=== PATIENT | male | born 1960 | race Caucasian/White ===

== ENCOUNTER 2017-01-06 09:19 | Day surgery (SDC) | payer BC, OTHER ==
[~2017-01-06] VITALS: Ht 12.7 cm; Wt 5.0 kg
[~2017-01-06 09:19] MED LIST: ALLE12TA31 PO; FLUTISP; HYDR25TAB PO
[2017-01-06] MEDS ORDERED: NS 1,000 ML IV ONE (10:00)
[2017-01-06] MEDS ORDERED: LIDOCAINE 2% INJ 100 MG/5 ML SDV (FOR ANES.) As Ordered ONE (11:20)
[2017-01-06] MEDS ORDERED: PROPOFOL 200 MG/20 ML VIAL As Ordered ONE (11:20)
--- NOTE | 2017-01-06 11:29 | ROOR ---
Patient Name: Nik Valencia Procedure Date: 01/06/2017 11:04 AM Date of : 1960 Age: 56 Room: [facility] Gender: Male Note Status: Finalized Procedure: Colonoscopy Indications: Screening for colorectal malignant neoplasm Providers: Morgan AGUILERA MD Referring MD: Basilio MORALES NP Requesting Provider: Medicines: Monitored Anesthesia Care Complications: No immediate complications. Procedure: Pre-Anesthesia Assessment: - The heart rate, respiratory rate, oxygen saturations, blood pressure, adequacy of pulmonary ventilation, and response to care were monitored throughout the procedure. The Colonoscope was introduced through the anus and advanced to the cecum, identified by appendiceal orifice and ileocecal valve. The colonoscopy was performed without difficulty. The patient tolerated the procedure well. The quality of the bowel preparation was good. Findings: The perianal and digital rectal examinations were normal. A 9 mm polyp was found in the splenic flexure. The polyp was pedunculated. The polyp was removed with a hot snare. Resection and retrieval were complete. Small Internal Hemorrhoids. The exam was otherwise without abnormality on direct and retroflexion views. Impression: - One 9 mm polyp at the splenic flexure, removed with a hot snare. Resected and retrieved. - Small Internal Hemorrhoids. - The examination was otherwise normal on direct and retroflexion views. Recommendation: - Repeat colonoscopy in 3 years for surveillance. Morgan Aguilera MD Morgan AGUILERA MD 01/06/2017 11:29:05 AM This report has been signed electronically. Number of Addenda: 0 Note Initiated On: 01/06/2017 11:04 AM Estimated Blood Loss: Estimated blood loss: none.
[2017-01-06 11:45] VITALS: BP 123/80
== END 2017-01-06 11:57 | disposition home or self-care (01) ==
LOC: M OPP 09:19
PROVIDERS: ATTEND Internal Medicine Gastroenterology
DX: Z12.11 Encounter for screening for malignant neoplasm of colon (principal); D12.3 Benign neoplasm of transverse colon; K64.8 Other hemorrhoids; I10 Essential (primary) hypertension; R06.83 Snoring; Z87.891 Personal history of nicotine dependence; Z79.899 Other long term (current) drug therapy; Z80.7 Family history of other malignant neoplasms of lymphoid, hematopoietic and related tissues

== ENCOUNTER → 2017-01-23 | Outpatient (REF) | payer OTHER ==
[2017-01-25 14:15] LABS: PSA % FREE 7.9 % (.); PSA FREE 0.72 ng/mL; PSA TOTAL 9.1 ng/mL (0.0-4.0)
== END ==
LOC: M LABSMT 16:31
PROVIDERS: ATTEND Nurse Practitioner Women's Health
DX: R97.20 Elevated prostate specific antigen [PSA] (principal)

== ENCOUNTER → 2017-02-24 | Outpatient (CLI) | payer BC, OTHER | LOC: M SMT PRO 08:17 | DX: R97.20 Elevated prostate specific antigen [PSA] (principal) | CPT/HCPCS: G0416 ==

== ENCOUNTER → 2017-05-22 | Outpatient (REF) | payer OTHER ==
[2017-05-25 00:08] LABS: PSA FREE 0.69 ng/mL; PSA TOTAL 9.9 ng/mL (0.0-4.0)
== END ==
LOC: M SMT 18:49
DX: N41.1 Chronic prostatitis (principal)
CPT/HCPCS: 84154

== ENCOUNTER → 2017-11-27 | Outpatient (CLI) | payer OTHER ==
[2017-11-30 17:40] LABS: PSA % FREE 8.9 % (.); PSA FREE 0.71 ng/mL
== END ==
LOC: M ADAMS 15:15
DX: R97.20 Elevated prostate specific antigen [PSA] (principal)
CPT/HCPCS: 84154

== ENCOUNTER → 2018-05-29 | Outpatient (REF) | payer OTHER | LOC: M LABSMT 15:41 | PROVIDERS: ATTEND Nurse Practitioner Women's Health | DX: R97.20 Elevated prostate specific antigen [PSA] (principal) ==

== ENCOUNTER → 2018-11-20 | Outpatient (REF) | payer OTHER ==
[2018-11-20 15:18] LABS: INR 0.92
[2018-11-20 15:19] LABS: PARTIAL THROMBOPLASTIN TIME 26.9 SECONDS (25.0-38.4)
== END ==
LOC: M LAB REF 12:07
PROVIDERS: ATTEND Internal Medicine
DX: Z01.812 Encounter for preprocedural laboratory examination (principal); C61 Malignant neoplasm of prostate

== ENCOUNTER → 2020-04-05 | Outpatient (CLI) | payer OTHER ==
[~2020-04-05] MED LIST changes: +CIAL5TAB PO; +CLAR10CA3 PO; +D31000TA2 PO; +HYDR-3490 PO; -HYDR25TAB PO; +LISI20TA33 PO; +OMEP1CAP73 PO; +VITA100T86 PO
== END ==
LOC: M LABSMTC 08:11
PROVIDERS: ATTEND Anesthesiology
DX: Z01.812 Encounter for preprocedural laboratory examination (principal); Z20.822 Contact with and (suspected) exposure to COVID-19

== ENCOUNTER 2020-04-10 07:42 | Day surgery (SDC) | payer BC, OTHER ==
[~2020-04-10] VITALS: Ht 180.3 cm; Wt 92.0 kg
[~2020-04-10 07:42] MED LIST changes: +NS 1,000 ML IV ONE
[2020-04-10] MEDS ORDERED: LIDOCAINE 2% 100MG/5ML SDV (FOR ANES.) As Ordered ONE (08:23)
[2020-04-10] MEDS ORDERED: propofoL 200 MG/20 ML VIAL As Ordered ONE (08:23)
--- NOTE | 2020-04-10 08:59 | ROOR ---
Patient Name: Nik Valencia Procedure Date: 04/10/2020 8:34 AM Date of : 1960 Age: 59 Room: [facility] Gender: Male Note Status: Finalized Procedure: Colonoscopy Indications: High risk colon cancer surveillance: Personal history of colonic polyps, Last colonoscopy: January 2017 Providers: Morgan AGUILERA MD Referring MD: Maria De Jesus Edmond NP Requesting Provider: Medicines: Monitored Anesthesia Care Complications: No immediate complications. Procedure: Pre-Anesthesia Assessment: - The heart rate, respiratory rate, oxygen saturations, blood pressure, adequacy of pulmonary ventilation, and response to care were monitored throughout the procedure. The Colonoscope was introduced through the anus and advanced to the terminal ileum, with identification of the appendiceal orifice and IC valve. The colonoscopy was performed without difficulty. The patient tolerated the procedure well. The quality of the bowel preparation was good. Findings: The perianal and digital rectal examinations were normal. Two pedunculated and sessile polyps were found in the splenic flexure. The polyps were 5 to 7 mm in size. These polyps were removed with a cold snare. Resection and retrieval were complete. To prevent bleeding after the polypectomy, two hemostatic clips were successfully placed. There was no bleeding at the end of the procedure. Internal hemorrhoids were found during retroflexion. The hemorrhoids were medium-sized. The exam was otherwise without abnormality on direct and retroflexion views. Impression: - Two 5 to 7 mm polyps at the splenic flexure, removed with a cold snare. Resected and retrieved. Clips were placed. - Internal hemorrhoids. - The examination was otherwise normal on direct and retroflexion views. Recommendation: - Repeat colonoscopy in 5 years for surveillance. Procedure Code(s): --- Professional --- 65379, Colonoscopy, flexible; with removal of tumor(s), polyp(s), or other lesion(s) by snare technique Diagnosis Code(s): --- Professional --- K64.8, Other hemorrhoids K63.5, Polyp of colon Z86.010, Personal history of colonic polyps CPT copyright 2019 [employer]. All rights reserved. The codes documented in this report are preliminary and upon telecommunications project manager review may be revised to meet current compliance requirements. Morgan Aguilera MD Morgan AGUILERA MD 04/10/2020 9:00:12 AM Electronically signed by Morgan AGUILERA MD Number of Addenda: 0 Note Initiated On: 04/10/2020 8:34 AM Estimated Blood Loss: Estimated blood loss: none.
[2020-04-10 09:25] VITALS: BP 125/91
== END 2020-04-10 10:02 | disposition home or self-care (01) ==
LOC: M OPP 07:42
PROVIDERS: ATTEND Internal Medicine Gastroenterology
DX: Z12.11 Encounter for screening for malignant neoplasm of colon (principal); Z86.010 Personal history of colon polyps; D12.3 Benign neoplasm of transverse colon; K64.8 Other hemorrhoids; I10 Essential (primary) hypertension; Z79.899 Other long term (current) drug therapy; Z87.891 Personal history of nicotine dependence

== ENCOUNTER 2021-01-06 08:29 | Outpatient (CLI) | payer BC, OTHER ==
[~2021-01-06] VITALS: Ht 180.3 cm; Wt 95.3 kg
[~2021-01-06 08:29] MED LIST changes: +ALBUTEROL 90 MCG/ACT 8GM HFA INHALER INH PRN; +ALBUTEROL SULFATE 2.5 MG/0.5 ML INH NEB SOLN INH PRN; +EPINEPHrine INJ 1 MG/ML 1ML AMP IM PRN; -NS 1,000 ML IV ONE; +NS 1,000 ML IV SCH; +diphenhydrAMINE 50MG/ML VIAL (J1200) IV PRN; +methylPREDNISolone 125MG 2ML VIAL IV PRN
[2021-01-06] MEDS ORDERED: CASIRIVIMAB (REGN10933) 600 MG, IMDEVIMAB (REGN10987) 600 MG in NS 250 ML IV ONE (08:30)
[2021-01-06 08:48] VITALS: BP 119/76
[2021-01-06] MEDS: ACETAMINOPHEN TAB 650MG DOSE (2X325MG) PO ONE ×2 (08:48→09:10)
[2021-01-06] MEDS: diphenhydrAMINE 25MG CAP PO ONE ×2 (08:49→09:10)
[2021-01-06 09:18] VITALS: BP 113/65
[2021-01-06 09:48] VITALS: BP 109/61
[2021-01-06 10:48] VITALS: BP 106/70
== END 2021-01-06 10:48 | disposition home or self-care (01) ==
LOC: M OPCLI4PR 08:29
PROVIDERS: ATTEND Physician Assistant Medical
DX: U07.1 COVID-19 (principal)

== ENCOUNTER → 2021-11-03 | Outpatient (REF) | payer BC, OTHER ==
[~2021-11-03] MED LIST changes: -ALBUTEROL 90 MCG/ACT 8GM HFA INHALER INH PRN; -ALBUTEROL SULFATE 2.5 MG/0.5 ML INH NEB SOLN INH PRN; -D31000TA2 PO; -EPINEPHrine INJ 1 MG/ML 1ML AMP IM PRN; -NS 1,000 ML IV SCH; +VITA100093 PO; -diphenhydrAMINE 50MG/ML VIAL (J1200) IV PRN; -methylPREDNISolone 125MG 2ML VIAL IV PRN
== END ==
LOC: M LAB REF 16:12
PROVIDERS: ATTEND Physician Assistant Medical
DX: Z85.46 Personal history of malignant neoplasm of prostate (principal)